=== PATIENT | female | born 1985 | race Caucasian/White ===

== ENCOUNTER 2020-08-11 10:25 | Emergency (ER) | payer OTHER ==
[2020-08-11 10:36] VITALS: BP 136/79
--- NOTE | 2020-08-11 10:50 | Emergency Department Report ---
ED General Adult HPI - General Chief complaint: Weakness Stated complaint: LEFT SIDE OF BODY NUMBNESS Time Seen by Provider: 08/11/20 10:45 Source: patient Mode of arrival: Ambulatory Limitations: No Limitations - History of Present Illness Initial comments: pt is a 35 yo female who presents to the ED with c/o left arm pain that began yesterday. she states that when she does her daily stretches that it feels tight and sore. she denies any numbness, decreased sensation, or weakness of the arm. she denies any fever, redness, swelling, drainage. she denies any fever, n/v/d, CP, abd pain, cough, SOB. she states that she received the COVID vaccine two days ago in the left arm. she states she called the number provided by the facility where she received the vaccine and they advised her these were normal findings, she states she just wanted to be evaluated in person. no allergies to meds. she denies any rash, facial swelling, sensation of throat closing, difficulty breathing or swallowing. - Related Data Allergies Allergy/AdvReac Type Severity Reaction Status Date / Time No Known Allergies Allergy Unverified 08/11/20 10:31 ED Review of Systems ROS: Stated complaint: LEFT SIDE OF BODY NUMBNESS Other details as noted in HPI Comment: All other systems reviewed and negative ED Past Medical Hx - Past Medical History Previous Medical History?: No - Surgical History Past Surgical History?: No - Social History Smoking Status: Never Smoker Substance Use Type: None ED Physical Exam - General Limitations: No Limitations General appearance: alert, in no apparent distress - Head Head exam: Present: atraumatic, normocephalic - Eye Eye exam: Present: normal appearance, PERRL, EOMI. Absent: periorbital swelling, periorbital tenderness - ENT ENT exam: Present: mucous membranes moist - Respiratory Respiratory exam: Present: normal lung sounds bilaterally. Absent: respiratory distress, wheezes, rales, rhonchi, stridor, chest wall tenderness, accessory muscle use, decreased breath sounds, prolonged expiratory - Cardiovascular Cardiovascular Exam: Present: regular rate, normal rhythm, normal heart sounds. Absent: systolic murmur, diastolic murmur, rubs, gallop - Neurological Exam Neurological exam: Present: alert, oriented X3, CN II-XII intact, normal gait. Absent: motor sensory deficit - Psychiatric Psychiatric exam: Present: normal affect, normal mood - Skin Skin exam: Present: warm, dry, other (very small pin point area from vaccination present to the left deltoid, no erythema, no increased warmth, no necrosis, no induration, no blistering, no rash) ED Course Vital Signs 08/11/20 08/11/20 10:36 10:43 Temperature 98.3 F Pulse Rate 83 Respiratory 20 Rate Blood Pressure 136/79 O2 Sat by Pulse 92 100 Oximetry ED Medical Decision Making - Medical Decision Making pt is a 35 yo female who presents to the ED with c/o left arm pain that began yesterday. she states that when she does her daily stretches that it feels tight and sore. she denies any numbness, decreased sensation, or weakness of the arm. she denies any fever, redness, swelling, drainage. she denies any fever, n/v/d, CP, abd pain, cough, SOB. she states that she received the COVID vaccine two days ago in the left arm. she states she called the number provided by the facility where she received the vaccine and they advised her these were normal findings, she states she just wanted to be evaluated in person. no allergies to meds. she denies any rash, facial swelling, sensation of throat closing, difficulty breathing or swallowing. Initial vitals were entered correctly, patient's oxygen saturations 100% on room air, repeated by nurse and repeated by myself in exam room. on Exam: very small pin point area from vaccination present to the left deltoid, no erythema, no increased warmth, no necrosis, no induration, no blistering, no rash. Patient is experiencing a typical response to a vaccine, no signs of infection, she is not having any numbness in the arm, she is having myalgias and soreness in the arm at injection site, there are no neurological deficits on exam, her sensation is intact, she is neurovascularly intact. advised pt may alternate tylenol or ibuprofen as needed for discomfort. increase your water intake. follow up with a primary care doctor. return to the emergency room for any new or worsening symptoms. Critical care attestation.: If time is entered above; I have spent that time in minutes in the direct care of this critically ill patient, excluding procedure time. ED Disposition Clinical Impression: Arm pain, left Disposition: TO HOME OR SELFCARE Is pt being admited?: No Does the pt Need Aspirin: No Condition: Stable Additional Instructions: may alternate tylenol or ibuprofen as needed for discomfort. increase your water intake. follow up with a primary care doctor. return to the emergency room for any new or worsening symptoms. Referrals: your, primary care doctor [Other] - 2-3 Days Time of Disposition: 10:50 Print Language: WELSH
== END 2020-08-11 10:54 | disposition home or self-care (01) ==
LOC: ED 10:25
DX: M79.602 Pain in left arm (principal)
CPT/HCPCS: 99282

== ENCOUNTER 2020-08-31 16:48 | Emergency (ER) | payer OTHER ==
[2020-08-31 17:02] VITALS: BP 143/80
--- NOTE | 2020-08-31 17:09 | Emergency Department Report ---
Chief Complaint: Medical Clearance Stated Complaint: ARM PAIN,CHILLS Time Seen by Provider: 08/31/20 17:04 - HPI History of Present Illness: 35-year-old female patient presents with complaints of left arm pain and feeling chills and body aches after receiving the Covid vaccine yesterday. Patient states the vaccine was given in her left arm. She denies any swelling, skin changes, shortness of breath, chest pain, headache, or numbness/tingling/weakness or difficulty moving her left arm. Patient states her symptoms improved with aspirin. She states " I just wanted to get checked out to make sure everything was okay" Patient's vitals are normal and her exam is normal. She is stable for discharge home. Discussed with patient that these are normal side effects of the Covid vaccine and to take Tylenol, drink plenty of water, rest, and use vitamin C d aily. Patient to follow-up with her primary care doctor. Strict return precautions were discussed in detail with patient who verbalizes understanding. - Exam Vital Signs: Vital Signs 08/31/20 16:59 Temperature 99 F Pulse Rate 89 Respiratory 20 Rate Blood Pressure 143/80 O2 Sat by Pulse 97 Oximetry MSE screening note: Focused history and physical exam performed. Due to findings the following was ordered: ED Disposition for MSE Clinical Impression: Vaccine reaction Qualifiers: Encounter type: initial encounter Qualified Code(s): T50.Z95A - Adverse effect of other vaccines and biological substances, initial encounter Disposition: Z-07 MED SCREENING EXAM-LEFT Is pt being admited?: No Condition: Stable Referrals: [facility] [Provider Group] - 3-5 Days ED Physical Exam - General Limitations: No Limitations General appearance: alert, in no apparent distress, obese - Head Head exam: Present: atraumatic, normocephalic - Eye Eye exam: Present: normal appearance. Absent: scleral icterus - ENT ENT exam: Present: normal exam - Neck Neck exam: Present: normal inspection - Respiratory Respiratory exam: Present: normal lung sounds bilaterally. Absent: respiratory distress - Cardiovascular Cardiovascular Exam: Present: regular rate, normal rhythm - Expanded Upper Extremity Exam Left Shoulder Exam: Present: normal inspection Upper Arm exam: Present: normal inspection Elbow exam: Present: normal inspection Forearm Wrist exam: Present: normal inspection - Neurological Exam Neurological exam: Present: alert, oriented X3, normal gait - Psychiatric Psychiatric exam: Present: normal affect, normal mood - Skin Skin exam: Present: warm, dry, intact, normal color. Absent: rash ED Review of Systems ROS: Stated complaint: ARM PAIN,CHILLS Other details as noted in HPI Constitutional: chills, diaphoresis, malaise. denies: fever, weakness ENT: denies: ear pain Respiratory: denies: cough, shortness of breath Cardiovascular: denies: chest pain Gastrointestinal: denies: abdominal pain, nausea, vomiting Genitourinary: denies: urgency, dysuria, frequency, hematuria Musculoskeletal: denies: back pain Neurological: denies: headache Hematological/Lymphatic: denies: swollen glands
== END 2020-08-31 18:01 | disposition left against medical advice (07) ==
LOC: ED 16:48
DX: M79.602 Pain in left arm (principal); T88.1XXA Other complications following immunization, not elsewhere classified, initial encounter; Z53.21 Procedure and treatment not carried out due to patient leaving prior to being seen by health care provider
CPT/HCPCS: 99282